=== PATIENT | female | born 1955 | race Caucasian/White ===

== ENCOUNTER → 2016-02-16 | Outpatient (CLI) | payer BC ==
--- NOTE | 2016-02-16 16:45 | DI ---
Tc-99 HIDA BILIARY SCAN WITH FATTY MEAL CHALLENGE, 02/16/2016 1:03 PM : Clinical History: Fatty food intolerance Previous Related Exam: None. The patient was injected with 6.5 mCi of Tc-99 Choletec, a HIDA compound. An anterior dynamic flow study was performed followed by sequential anterior imaging at one minute in tervals out to 60 minutes. The patient was then given a 38 gm fatty challenge and sequential anterior imaging at one minute inte rvals was carried out to 60 minutes for the gall bladder ejection phase. The patient did experience symptoms following the fatty meal challenge. There was mild right upper qu adrant pain for 20 minutes during the fatty meal challenge. There was normal hepatic uptake and signal seen within the gallbladder and the small bowel within 15 minutes. Gall bladder ejection fraction was calculated to be 70 %. Reading: Normal excretory Tc-99 HIDA biliary kinetics.
== END ==
LOC: NM 12:55
PROVIDERS: ATTEND Nurse Practitioner Family
DX: K90.49 Malabsorption due to intolerance, not elsewhere classified (principal)
CPT/HCPCS: 78226; A9537

== ENCOUNTER → 2016-04-03 | Outpatient (CLI) | payer BC ==
[2016-04-03 07:38] LABS: BLOOD UREA NITROGEN 24 mg/dL (7-22); CREATININE 0.8 mg/dL (0.50-1.20); EST GLOMERULAR FILTRATION > 60 (>60 ml/min/1.73m(2))
--- NOTE | 2016-04-03 09:39 | DI ---
CT ABDOMEN W/CONTRAST,04/03/2016 7:24 AM: Clinical History: Abdominal pain of unspecified location. Previous Exam: April 28, 2015 Findings: Multiple helically acquired CT images are obtained through the abdomen and pelvis following the intra venous administration of 75 mL of Isovue 300. There is a stable coarse calcification in what appears to be the uncinate process of the pancreatic h ead. This was seen in the 2016 CT scan, but is also seen on plain film the atrophy of the abdomen from 200 6 and 2007. This measures 2 cm in mediolateral dimension as well as 2.2 cm in superior-inferior dimen jurgen. There is no abnormal enhancement. The adrenals, kidneys, liver, gallbladder and spleen are unremarkable. Skeletal structures are unrema rkable. There is some facet hypertrophy involving the posterior articulating facets. Vascular calcifications are seen. The liver, gallbladder, spleen and adrenals are unremarkable. The kidneys are also unremarkable excep t for a simple 14 mm cyst within the inferior pole of the left kidney. Impression: Dystrophic calcifications of the uncinate process of the pancreas, which appear to be stable for over a decade. This most likely represents an old injury or old infection. Consider followup in one year to document stability.
== END ==
LOC: CT 07:17
PROVIDERS: ATTEND Surgery
DX: R10.84 Generalized abdominal pain (principal)
CPT/HCPCS: 36415; 74160; 82565; 84520

== ENCOUNTER 2016-04-08 09:15 | Day surgery (SDC) | payer BC ==
[~2016-04-08 09:15] MED LIST: LIDOCAINE 2% VISCOUS(20 MG/1 ML) - 15 ML UD CUP PO ONE; LIDOCAINE W/ SODIUM BICARB 0.5 ML SYR ONE; Lactated Ringers 1,000 ML PRIMARY IV ONE; MIDAZOLAM 5 MG/1 ML ONE; fentaNYL Inj 100 MCG/2 ML VIAL ONE
[2016-04-08] MEDS ORDERED: LIDOCAINE HCL/PF 2% (20 MG/ML) - 5 ML SYRINGE ONE (09:52)
[2016-04-08] MEDS ORDERED: IPRATROPIUM/ALBUTEROL SULFATE 3 ML NEB NEB ONE ×2 (10:43→10:57)
[2016-04-08] MEDS ORDERED: KETOROLAC 30 MG/1 ML VIAL ONE (10:44)
--- NOTE | 2016-04-08 10:44 | GEN.OPNOTE ---
EGD / Colonoscopy Report Surgery Date: 04/08/16 Preoperative Diagnosis: GERD. Personal history of colon polyps. Status post right colectomy. Postoperative Diagnosis: Same. Procedure: #1 esophagogastroduodenoscopy with biopsy. #2 complete colonoscopy with biopsy and destruction of sigmoid and rectal polyps. Surgeon: Dawood Moreland MD Anesthesia Provider: Manolo Reilly CRNA Anesthesia Type: MAC Indications: Patient is a 60-year-old due for follow-up colonoscopy. She had her right colon removed for a large adenomatous polyp with high-grade dysplasia. Her last colonoscopy was in 2013. She had multiple hyperplastic polyps. She is due for follow-up. Patient has refractory reflux. She has not had an upper endoscopy for some time. She does have a history of H. pylori gastritis indicating follow-up upper endoscopy. She also has intermittent episodes of abdominal pain with nausea vomiting and diarrhea. EGD Findings: Esophagus: [Normal] GE Junction : [Normal with hiatal hernia. Biopsies taken.] Fundus : [Normal] Body : [Normal] Prepyloric : [Mild erythema. Biopsies taken.] Small Intestine : [Normal] A lubricated flexible upper endoscope was inserted and passed through the esophagus and stomach into the duodenum. The duodenum and duodenal bulb were unremarkable. Pyloric channel was patent. There is mild erythema in the antrum. Multiple biopsies were taken. Hemostasis was assured. The scope was retroflexed. There was a hiatal hernia but no other abnormalities. The scope was straightened. Air was aspirated. The scope was withdrawn into the distal esophagus. Multiple biopsies were taken at and above the Z line. Hemostasis was assured. The scope was withdrawn through the remainder of a normal- appearing esophagus and brought to the hypopharynx under suction completing that portion of the procedure. Colonoscopy Findings: Prep : [Excellent] Cecum : [Surgically absent] Ascending : [Anastomosis widely patent.] Transverse : [Normal] Sigmoid : [Distal sigmoid polyps. Multiple. Appeared hyperplastic. Consistent with findings on last endoscopy. Multiple polyps biopsied and destroyed. Some were left alone as there were numerous polyps.] Rectum : [Multiple hyperplastic-appearing polyps. Biopsied and destroyed. Some left alone as there were numerous polyps. To many to remove normal.] Digital Rectal Exam : [Normal] A lubricated flexible colonoscope was inserted and passed to the anastomosis. The anastomosis was widely patent. The hepatic flexure, transverse colon, splenic flexure, descending colon were all unremarkable. In the distal sigmoid colon there were multiple hyperplastic-appearing polyps. I chose the largest ones and biopsied many and destroyed some. Hemostasis was assured. The scope was then withdrawn into the rectum where there were also numerous hyperplastic appearing polyps. Multiple biopsies were taken. Several other polyps were destroyed. Some were not even biopsied. Again we chose the larger more worrisome ones. Hemostasis was assured and the scope was withdrawn completing the procedure. Patient tolerated the procedure well without complication. She was taken to outpatient surgery in stable condition Follow up with my office on an as-needed basis. We will call the biopsy results and plan therapy and follow-up accordingly. At the longest interval she should have a colonoscopy in 5 years. Await pathologic analysis.
[2016-04-08 12:01] VITALS: RESP 16
[2016-04-08 12:02] VITALS: TEMP 97.1
== END 2016-04-08 11:25 | disposition home or self-care (01) ==
LOC: SDSC 09:15
PROVIDERS: ATTEND Surgery
DX: R10.9 Unspecified abdominal pain (principal); K21.9 Gastro-esophageal reflux disease without esophagitis; Z86.010 Personal history of colon polyps; Z90.49 Acquired absence of other specified parts of digestive tract
CPT/HCPCS: 43239; 45380; 94640; J1885; J2704; J3010; J7620; J2001; J2250; J7120

== ENCOUNTER 2018-10-28 15:00 | Inpatient (IN) ==
[2018-10-29] MEDS ORDERED: LIDOCAINE W/ SODIUM BICARB 0.5 ML SYR SUBD ONE (06:00)
[2018-10-29] MEDS ORDERED: Lactated Ringers 1,000 ML PRIMARY IV ONE ×2 (06:00→14:34)
[2018-10-29] MEDS ORDERED: Nasal Sanitizer POPSWAB ampule 3 AMP (Nozin) PREOP DOSE ENOS SCH (06:00)
[2018-10-29] MEDS ORDERED: ceFAZolin Inj 2gm (Premix) 2 GM/50 ML BAG IV ONE ×2 (06:00→14:34)
[2018-10-29] MEDS ORDERED: Vancomycin-PHA to Dose IV PRN (06:00)
[2018-10-29] MEDS ORDERED: Sodium Chloride 0.9% 250 ML ONE ×2 (14:34→17:36)
[2018-10-29] MEDS ORDERED: LIDOCAINE W/ SODIUM BICARB 0.5 ML SYR ONE (14:34)
[2018-10-29] MEDS ORDERED: Vancomycin Inj 1.25gm vial IV ONE (14:34)
[2018-10-29] MEDS ORDERED: IPRATROPIUM/ALBUTEROL SULFATE 3 ML NEB NEB ONE ×2 (16:16→16:17)
[2018-10-29 16:40] LABS: BILIRUBIN,URINE NEGATIVE (NEG); CLARITY,URINE CLEAR (CLEAR); COLOR,URINE YELLOW (Y); GLUCOSE, URINE (UA) NEGATIVE (NEG); OCCULT BLOOD,URINE NEGATIVE (NEG); PROTEIN,URINE NEGATIVE (NEG); URINE SAMPLE TYPE CLEAN CATCH URINE; UROBILINOGEN,URINE 0.2 EU/dL (0.2)
[2018-10-29] MEDS ORDERED: MIDAZOLAM HCL 2 MG/2 ML VIAL ONE (16:41)
[2018-10-29] MEDS ORDERED: PROPOFOL 10 MG/1 ML (200 MG/20 ML) VIAL IV ONE (16:41)
[2018-10-29] MEDS ORDERED: fentaNYL Inj 100 MCG/2 ML VIAL ONE (16:41)
[2018-10-29] MEDS ORDERED: KETAMINE 100 MG/1 ML - 5 ML ONE (16:41)
[2018-10-29] MEDS ORDERED: THROMBIN (BOVINE) 20,000 UNIT KIT TOPICAL ONE ×2 (16:50→21:46)
[2018-10-29] MEDS ORDERED: Sodium Chloride 0.9% vial 10 ML ONE (16:50)
[2018-10-29] MEDS ORDERED: Vancomycin Inj 1gm vial ONE (16:50)
[2018-10-29] MEDS ORDERED: BACITRACIN 50,000 UNIT VIAL IRRIG ONE (16:50)
[2018-10-29] MEDS ORDERED: LIDOCAINE HCL 2 % 10 ML JELLY URO-JECT TOPICAL ONE (16:56)
[2018-10-29] MEDS ORDERED: REMIFENTANIL HCL 2 MG VIAL IV ONE (17:34)
[2018-10-29] MEDS ORDERED: Propofol 1,000 MG/100 ML VIAL IV ONE ×2 (17:34→20:23)
[2018-10-29] MEDS ORDERED: Sodium Chloride 0.9% 0 ML ONE (19:06)
[2018-10-29] MEDS ORDERED: LIDOCAINE HCL 2 % 10 ML JELLY URO-JECT TOPICAL PRN (19:56)
[2018-10-29] MEDS ORDERED: DEXAMETHASONE PF 10 MG/1 ML VIAL ONE (20:43)
[2018-10-29] MEDS ORDERED: REMIFENTANIL 1 MG/1 ML IV ONE (22:18)
[2018-10-29] MEDS ORDERED: ONDANSETRON 4 MG/2 ML VIAL ONE (22:21)
[2018-10-29] MEDS ORDERED: ATROPINE SULFATE 0.4 MG/1 ML VIAL IVP PRN (23:19)
[2018-10-29] MEDS ORDERED: LIDOCAINE W/ SODIUM BICARB 0.5 ML SYR SUBD PRN (23:19)
[2018-10-29] MEDS ORDERED: Prochlorperazine Edisylate Inj 10mg/2ml vial IVP PRN (23:19)
[2018-10-29] MEDS ORDERED: ONDANSETRON 4 MG/2 ML VIAL IVP PRN (23:19)
[2018-10-29] MEDS ORDERED: HYDROmorphone 2 MG/1 ML ONE (23:19)
[2018-10-29] MEDS: HYDROmorphone 2 MG/1 ML IVP PRN ×2 (23:23→23:31)
[2018-10-29] MEDS ORDERED: Lactated Ringers 1,000 ML PRIMARY IV SCH (23:30)
[2018-10-29] MEDS ORDERED: DIAZEPAM 10 MG/2 ML (5 MG/1 ML) CARPUJECT IVP ONE (23:34)
[2018-10-29] MEDS ORDERED: DIAZEPAM 10 MG/2 ML (5 MG/1 ML) CARPUJECT ONE (23:34)
[2018-10-29] MEDS: fentaNYL Inj 100 MCG/2 ML VIAL IVP PRN (23:56)
[2018-10-30] MEDS: fentaNYL Inj 100 MCG/2 ML VIAL IVP PRN ×3 (00:01→00:14)
[2018-10-30] MEDS ORDERED: Zolpidem Tab 5 MG TAB PO PRN (00:35)
[2018-10-30] MEDS ORDERED: Ondansetron ODT Tab 4 MG TAB PO PRN (00:35)
[2018-10-30] MEDS ORDERED: DOCUSATE 100 MG CAPSULE PO PRN (00:35)
[2018-10-30] MEDS ORDERED: METHYLCELLULOSE 500 MG PO ONE (00:35)
[2018-10-30] MEDS ORDERED: LABETALOL 100 MG/20 ML (5 MG/1 ML) MDV IVP PRN (00:35)
[2018-10-30] MEDS ORDERED: ACETAMINOPHEN 325 MG TABLET PO PRN (00:35)
[2018-10-30] MEDS ORDERED: ONDANSETRON 4 MG/2 ML VIAL IVP PRN (00:35)
[2018-10-30] MEDS ORDERED: CALCIUM CARBONATE 500 MG (TUMS) CHEWABLE TABLET PO PRN (00:35)
[2018-10-30] MEDS ORDERED: HYDRALAZINE 20 MG/1 ML IVP PRN (00:35)
[2018-10-30] MEDS ORDERED: DIAZEPAM 10 MG/2 ML (5 MG/1 ML) CARPUJECT IVP ONE (00:35)
[2018-10-30 01:03] LABS: BASOPHILS # (AUTO) 0.01 10*3/UL; BASOPHILS % (AUTO) 0.1 % (0-1); EOSINOPHILS # (AUTO) 0.04 10*3/UL; EOSINOPHILS % (AUTO) 0.5 % (0-8); Hemoglobin [HGB] 15.2 g/dL (12.0-16.0); LYMPHOCYTES # (AUTO) 1.66 10*3/uL; MEAN CORPUSCULAR HGB CONC 35.3 g/dL (33-37); MEAN CORPUSCULAR VOLUME 85.8 FL (81-99); MEAN PLATELET VOLUME 11.1 FL (7.4-12.2); MONOCYTES # (AUTO) 0.19 10*3/UL (0.3-0.8); MONOCYTES % (AUTO) 2.5 % (5-15); NEUTROPHILS # (AUTO) 5.79 10*3/UL; NEUTROPHILS % (AUTO) 74.9 % (50-80); RED BLOOD COUNT 5.01 10^6/uL (4.20-5.40)
[2018-10-30 01:04] LABS: PLATELET MORPHOLOGY COMMENT NORMAL MORPHOLOGY (NORM); RBC MORPHOLOGY COMMENT NORMAL MORPHOLOGY (NORM); WBC MORPHOLOGY COMMENT NORMAL MORPHOLOGY (NORM)
[2018-10-30 01:14] LABS: BLOOD UREA NITROGEN 20 mg/dL (7-22); BUN/CREATININE RATIO 22.22 (6-20)
[2018-10-30] MEDS: ceFAZolin Inj 1 GM in Sodium Chloride 0.9% 100 ML IV SCH ×3 (01:17→16:34)
[2018-10-30] MEDS: D5-1/2NS + 20mEq KCL 1,000 ML PRIMARY IV SCH ×2 (01:19→11:29)
[2018-10-30] MEDS: oxyCODONE-ACETAMINOPHEN 5-325 TAB PO PRN ×3 (02:12→20:11)
[2018-10-30] MEDS: MORPHINE SULFATE 2 MG/1 ML IVP PRN ×4 (05:44→18:04)
[2018-10-30] MEDS ORDERED: KETOROLAC 15 MG/1 ML VIAL IVP PRN (08:15)
[2018-10-30] MEDS ORDERED: FESOTERODINE FUMARATE 4 MG PO SCH (09:00)
[2018-10-30] MEDS ORDERED: DILTIAZEM HCL CD 120 MG CAP PO SCH (09:00)
[2018-10-30] MEDS: ACIDOPHILUS/BULGARICUS CHEWABLE TABLET PO SCH (09:04)
[2018-10-30] MEDS: HYDROCHLOROTHIAZIDE 25 MG TABLET PO SCH (09:05)
[2018-10-30] MEDS: FAMOTIDINE 40 MG TABLET PO SCH ×2 (09:05→20:11)
[2018-10-30] MEDS: Multivitamin Tab 1 TAB PO SCH (09:07)
[2018-10-30] MEDS: PROPRANOLOL ER 60 MG CAPSULE PO SCH (09:07)
[2018-10-30] MEDS: Calcium/Vit D 600mg/400u Tab 1 TAB TABLET PO SCH (09:07)
[2018-10-30] MEDS: LISINOPRIL 20 MG TABLET PO SCH (09:17)
[2018-10-30] MEDS: KETOROLAC 15 MG/1 ML VIAL IVP SCH ×3 (10:32→22:02)
[2018-10-30] MEDS ORDERED: diphenhydrAMINE 50 MG/1 ML VIAL IVP ONE (17:37)
[2018-10-31] MEDS: ceFAZolin Inj 1 GM in Sodium Chloride 0.9% 100 ML IV SCH ×2 (00:05→08:15)
[2018-10-31] MEDS: oxyCODONE-ACETAMINOPHEN 5-325 TAB PO PRN ×3 (00:05→08:14)
[2018-10-31] MEDS: MORPHINE SULFATE 2 MG/1 ML IVP PRN (00:05)
[2018-10-31] MEDS: KETOROLAC 15 MG/1 ML VIAL IVP SCH ×4 (04:13→22:26)
[2018-10-31] MEDS: HYDROCHLOROTHIAZIDE 25 MG TABLET PO SCH (06:47)
[2018-10-31] MEDS ORDERED: Sodium Chloride 0.9% 50 ML ONE (08:08)
[2018-10-31] MEDS: LISINOPRIL 20 MG TABLET PO SCH (08:14)
[2018-10-31] MEDS: FAMOTIDINE 40 MG TABLET PO SCH ×2 (08:14→20:27)
[2018-10-31] MEDS: Calcium/Vit D 600mg/400u Tab 1 TAB TABLET PO SCH (08:14)
[2018-10-31] MEDS: Multivitamin Tab 1 TAB PO SCH (08:14)
[2018-10-31] MEDS: FESOTERODINE FUMARATE 4 MG PO SCH (08:14)
[2018-10-31] MEDS: PROPRANOLOL ER 60 MG CAPSULE PO SCH (08:14)
[2018-10-31] MEDS: ACIDOPHILUS/BULGARICUS CHEWABLE TABLET PO SCH (09:41)
[2018-10-31] MEDS: CYCLOBENZAPRINE 10 MG TABLET PO SCH ×3 (09:41→20:27)
[2018-10-31] MEDS ORDERED: Sodium Chloride 0.9% 1,000 ML PRIMARY IV ONE (11:32)
[2018-10-31 12:43] LABS: Hematocrit [HCT] 35.2 % (37.0-47.0); Hemoglobin [HGB] 12.1 g/dL (12.0-16.0); MEAN CORPUSCULAR HGB CONC 34.5 g/dL (33-37); MEAN CORPUSCULAR VOLUME 93 FL (81-99); MEAN PLATELET VOLUME 8.4 FL (7.4-12.2); RED BLOOD COUNT 3.76 10^6/uL (4.20-5.40)
[2018-10-31] MEDS: oxyCODONE IR Tab 5 MG TAB PO PRN (18:25)
[2018-10-31] MEDS ORDERED: DILTIAZEM HCL CD 120 MG CAP PO SCH (21:00)
[2018-11-01] MEDS: oxyCODONE IR Tab 5 MG TAB PO PRN ×3 (00:15→08:50)
[2018-11-01] MEDS: KETOROLAC 15 MG/1 ML VIAL IVP SCH (04:20)
[2018-11-01 05:15] LABS: Hematocrit [HCT] 35.6 % (37.0-47.0); Hemoglobin [HGB] 11.9 g/dL (12.0-16.0); MEAN CORPUSCULAR HGB CONC 33.5 g/dL (33-37); MEAN CORPUSCULAR VOLUME 93 FL (81-99); RED BLOOD COUNT 3.83 10^6/uL (4.20-5.40)
[2018-11-01 05:16] LABS: BASOPHILS # (AUTO) 0.05 10*3/UL; BASOPHILS % (AUTO) 0.5 % (0-1); EOSINOPHILS # (AUTO) 0.13 10*3/UL; EOSINOPHILS % (AUTO) 1.2 % (0-8); LYMPHOCYTES # (AUTO) 3.18 10*3/uL; MEAN PLATELET VOLUME 8.8 FL (7.4-12.2); MONOCYTES # (AUTO) 0.82 10*3/UL (0.3-0.8); MONOCYTES % (AUTO) 7.8 % (5-15); NEUTROPHILS # (AUTO) 6.35 10*3/UL; NEUTROPHILS % (AUTO) 60.3 % (50-80); PLATELET MORPHOLOGY COMMENT NORMAL MORPHOLOGY (NORM); RBC MORPHOLOGY COMMENT NORMAL MORPHOLOGY (NORM); WBC MORPHOLOGY COMMENT NORMAL MORPHOLOGY (NORM)
[2018-11-01 05:30] LABS: BLOOD UREA NITROGEN 26 mg/dL (7-22)
[2018-11-01 06:28] VITALS: RESP 16; TEMP 98.2; O2SAT 95
[2018-11-01] MEDS: Calcium/Vit D 600mg/400u Tab 1 TAB TABLET PO SCH (08:48)
[2018-11-01] MEDS: Multivitamin Tab 1 TAB PO SCH (08:48)
[2018-11-01] MEDS: FAMOTIDINE 40 MG TABLET PO SCH (08:48)
[2018-11-01] MEDS: CYCLOBENZAPRINE 10 MG TABLET PO SCH (08:48)
[2018-11-01] MEDS: ACIDOPHILUS/BULGARICUS CHEWABLE TABLET PO SCH (08:50)
[2018-11-01] MEDS: FESOTERODINE FUMARATE 4 MG PO SCH (08:54)
[2018-11-01 09:04] VITALS: BP 96/55
== END 2018-11-01 11:37 | disposition home or self-care (01) | DRG 460 ==
LOC: OPS 10-29 14:30 → MED/SURG 10-30 00:22
PROVIDERS: ADMIT Neurological Surgery; ATTEND Neurological Surgery